=== PATIENT | male | born 1960 | race Hispanic/Latino ===

== ENCOUNTER 2021-10-30 06:59 | Day surgery (SDC) | payer BC, MEDICARE ==
[2021-10-26 11:05] LABS: Absolute Lymphocytes (CBC) 1.2 K/uL (0.7-4.9); Hematocrit 42.3 % (39.6-49.0); Lymphocytes % 22.2 % (15.3-44.8); MCV 87.4 fL (80-100); RBC Red Blood Cell Count 4.84 M/uL (4.33-5.43)
[2021-10-26 11:32] LABS: Albumin 3.2 g/dL (3.4-5.0); Bilirubin Total 0.3 mg/dL (0.2-1.0); Potassium 3.9 mmol/L (3.5-5.1); Protein, Total 6.8 g/dL (6.4-8.2)
[2021-10-26 11:50] LABS: SARS-CoV-2 Antigen Rapid Res Negative (Negative)
--- NOTE | 2021-10-26 13:43 | EKG ---
Test Date: 2021-10-26 Test Time: 10:27:11 Meat Specialist: DULCE MEASUREMENT RESULTS: Intervals: Rate: 71 MS: 120 QRSD: 92 QT: 372 QTc: 404 Bouse: P: 14 MS: 120 QRS: -3 T: 21 INTERPRETIVE STATEMENTS: Normal sinus rhythm Normal ECG Compared to ECG 12/23/2013 19:01:39 No significant changes Electronically Signed On 10-26-21 13:42:39 CDT by Tj Mack
[2021-10-30] MEDS ORDERED: Ringers Lactate 1,000 ML IV ONE (07:22)
[2021-10-30] MEDS ORDERED: NA CIT/CITRIC AC 30 ML ORAL UDC ONE (07:38)
[2021-10-30] MEDS ORDERED: LIDOCAINE 1% MPF 5 ML VIAL ONE (08:02)
[2021-10-30] MEDS ORDERED: propofoL 200 MG/20 ML VIAL IV ONE ×2 (08:02)
--- NOTE | 2021-10-30 08:27 | ENDO RPT ---
[address], [address] EGD PROCEDURE REPORT EXAM DATE: 10/30/2021 PATIENT NAME: Axel Adam MR#: [id number] BIRTHDATE: 1960 ATTENDING: Ras Goff DR STATUS: outpatient MINISTER ASSISTANT: Daja Gutierres RN and Ramírez Garcia [facility] INDICATIONS: The patient is a 61 yr old Male here for an EGD due to mid epigastric abdominal pain PROCEDURE PERFORMED: EGD with biopsy for H. pylori MEDICATIONS: Per Anesthesia. TOPICAL ANESTHETIC: none CONSENT: The patient understands the risks and benefits of the procedure and understands that these risks include, but are not limited to: sedation, allergic reaction, infection, perforation and/or bleeding. Alternative means of evaluation and treatment include, among others: physical exam, x-rays, and/or surgical intervention. The patient elects to proceed with this endoscopic procedure. DESCRIPTION OF PROCEDURE: During intra-op preparation period all mechanical medical equipment was checked for proper function. Hand hygiene and appropriate measures for infection prevention was taken. Procedure, possible complications, and alternatives including but not limited to the possibility of bleeding, perforation, tear, infection, sepsis, need for surgery, need for blood transfusion, and anesthesia related complications were explained to the patient. After the risks, benefits and alternatives of the procedure were thoroughly explained, Informed consent was verified, confirmed and timeout was successfully executed by the treatment team. The patient was placed in the left lateral position. The patient was anesthetized with topical anesthesia. Through the anesthetized oropharyngeal area, the scope was passed without any difficulty. The EG-[id number] ([id number]) endoscope was introduced through the mouth and advanced to the second portion of the duodenum. Retroflexed views revealed no abnormalities. The gastroscope was then slowly withdrawn and removed. Duodenitis was found in the bulb and descending duodenum. Multiple biopsies were obtained and sent to pathology. LA Class A esophagitis was found in the lower esophagus. white plaques - biopsy taken Multiple biopsies were obtained and sent to pathology. Moderate gastritis was found in the body and the antrum of the stomach. Multiple biopsies were obtained and sent to pathology. ADVERSE EVENTS: There were no complications. IMPRESSIONS: 1. Duodenitis was found in the bulb and descending duodenum 2. LA Class A esophagitis was found in the lower esophagus 3. Moderate gastritis was found in the body and the antrum of the stomach RECOMMENDATIONS: 1. anti-reflux regimen 2. acid suppression therapy 3. await biopsy results 4. follow-up: office 2 week(s) 5. follow-up of helicobacter pylori status, treat if indicated REPEAT EXAM: Ras Goff DR eSigned: Ras Goff DR 10/30/2021 8:26 AM cc: CPT CODES: ICD9 CODES: PATIENT NAME: Axel Adam MR#: [id number]
[2021-10-30 12:34] VITALS: BP 107/61; TEMP 97.5; O2SAT 97
== END 2021-10-30 09:20 | disposition home or self-care (01) ==
LOC: OR 06:59
PROVIDERS: ATTEND Surgery
PROC: 0DB68ZX Excision of Stomach, Via Natural or Artificial Opening Endoscopic, Diagnostic (ICD-10-PCS; 2021-10-30)
PROC: 0DB28ZX Excision of Middle Esophagus, Via Natural or Artificial Opening Endoscopic, Diagnostic (ICD-10-PCS; 2021-10-30)
PROC: 0DB38ZX Excision of Lower Esophagus, Via Natural or Artificial Opening Endoscopic, Diagnostic (ICD-10-PCS; 2021-10-30)
PROC: 0DB48ZX Excision of Esophagogastric Junction, Via Natural or Artificial Opening Endoscopic, Diagnostic (ICD-10-PCS; 2021-10-30)
PROC: 0DB98ZX Excision of Duodenum, Via Natural or Artificial Opening Endoscopic, Diagnostic (ICD-10-PCS; principal; 2021-10-30 08:00)
DX: K22.4 Dyskinesia of esophagus (principal); K29.50 Unspecified chronic gastritis without bleeding; K21.9 Gastro-esophageal reflux disease without esophagitis; R13.10 Dysphagia, unspecified; E11.9 Type 2 diabetes mellitus without complications; K30 Functional dyspepsia; Z20.822 Contact with and (suspected) exposure to COVID-19; K21.00 Gastro-esophageal reflux disease with esophagitis, without bleeding
CPT/HCPCS: 93005; 85025; 36415; 88312; 82947; 88305; 80053; 87811; 43239; J2704; J7120